=== PATIENT | male | born 1995 | race Caucasian/White ===

== ENCOUNTER 2023-08-11 10:39 | Emergency (ER) | payer OTHER ==
[~2023-08-11] VITALS: Ht 182.9 cm; Wt 74.8 kg
== END 2023-08-11 12:34 | disposition home or self-care (01) ==
LOC: ER 10:39
DX: S00.81XA Abrasion of other part of head, initial encounter (principal); X58.XXXA Exposure to other specified factors, initial encounter; Y93.89 Activity, other specified; Y92.89 Other specified places as the place of occurrence of the external cause; Y99.8 Other external cause status